=== PATIENT | male | born 1985 | race Caucasian/White ===

== ENCOUNTER 2017-05-22 05:18 | Day surgery (SDC) | payer BC ==
[~2017-05-22] VITALS: Ht 172.7 cm; Wt 75.3 kg
--- NOTE | ~2017-05-22 | O ---
[facility] [place] [address] OPERATIVE REPORT Name: TONI FOX Room #: 150-2 [facility]#: [id number] Admission: 05/22/17 Attend Phys: Omar Ceron MD, F Discharge: Date of : 81 Report #: [id number] THIS REPORT FOR: //name// CC: OZZY physician/PCP Omar Ceron DATE OF SERVICE: 05/22/2017 PREOPERATIVE DIAGNOSIS: Pilonidal cyst with continuous drainage and cellulitis. POSTOPERATIVE DIAGNOSIS: Pilonidal cyst with continuous drainage and cellulitis. OPERATIVE PROCEDURE: Excision of pilonidal cyst, 4 x 3.5 cm in width. SURGEON: Omar Ceron M.D. TECHNICAL PROJECT MANAGER: Karthikeyan Keith MS3. INDICATIONS: A 32-year-old male with 1-year history of punctum and drainage from a pilonidal cyst in the intergluteal space. OPERATIVE PROCEDURE: The patient had a thorough discussion of the procedure, benefits and risks. He gave informed consent to proceed. Discussion was held regarding leaving the wound open or doing a primary closure. A primary closure was selected. The patient was given preoperative IV antibiotics. He was brought to the operating room suite and had satisfactory induction of general endotracheal anesthesia. He was then turned into the prone position. After appropriate draping and positioning was performed, Betadine paint was utilized for the intergluteal region. Appropriate draping was completed. An appropriate timeout was then performed. 0.5% plain Naropin was injected superficially and circumferentially around the intergluteal cleft region, 20 mL was utilized superficially, 10 mL was used in the deep fascia. Elliptical excision of a 4 cm vertical length and 3.5 cm width of the ellipse of tissue, of skin and underlying subcutaneous tunnels, which had been delineated by utilization of methylene blue and hydrogen peroxide. A complete excision down to the presacral fascia was performed. All of the tissue was submitted for histologic evaluation. Hemostasis was complete. Deep wide sutures of looped #1 PDS were placed in the superior aspect of the incision. These were approximately 3 cm wide to the elliptical excision. This also included the presacral fascia. 0 PDS was also utilized for 2 sutures for the wide sutures. The deep subcutaneous tissue was then approximated with interrupted 2-0 Vicryl sutures, 3-0 Vicryl sutures were also utilized to further approximate the subcutaneous tissue. This was all approximated in complex complete layer closure of the pilonidal cystectomy. After the superficial fat tissue was approximated with interrupted 3-0 Vicryl, skin margins were then approximated with vertical mattress 4-[address] [address] OPERATIVE REPORT Name: TONI FOX [place] Room #: 150-2 [facility] M.R.#: [id number] Admission: 05/22/17 Attend Phys: Omar Ceron MD, F Discharge: Date of : 81 Report #: [id number] Monocryl sutures. After this was completed, the wide #1 and 0 PDS sutures were ligated in place, but not too tight. Estimated blood loss for the entire procedure was less than 5 mL. The patient tolerated the procedure well and he returned to recovery room in stable and satisfactory condition. He will be discharged home in the care of his . He has previous medication of Dent for pain control. He will return to the office in 1-2 weeks for followup care. By: [id number] Omar Ceron MD, FACS /nt
--- NOTE | ~2017-05-22 | S ---
[facility] [place] [address] SURGICAL PATH RPT PROCEDURE Name: OH FOX Room #: DEP [facility] [place] Xena.Mor.#: [id number] Admission: 05/22/17 Date of : 81 Discharge: 05/22/17 Report #: [id number] Path Case #: [id number] PATHOLOGY REPORT COLLECTION DATE: 05/22/2017 RECEIVED DATE: 05/23/2017 SUBMITTING PHYS: Dr. Omar Ceron OTHER PHYS: SPECIMEN(S) RECEIVED: A.Pilonidal cyst * * * * * * * * * * * * FINAL DIAGNOSIS: Pilonidal cyst, excision: - Marked acute and chronic inflammation along with giant cell reaction associated with vellus hair, consistent with pilonidal cyst. PATHOLOGIST: Karina Doyle M.D. REPORT ELECTRONICALLY SIGNED BY: Karina Doyle M.D. DATE/TIME: 05/27/2017 16:34 * * * * * * * * * * * * GROSS PATHOLOGY: The specimen is received in formalin, labeled "Oh Fox and pilonidal cyst", is an unoriented ellipse skin 4.0 x 1.2 excised to a depth of 2.0 cm. The lopez-white skin shows centrally located 0.3 cm defect. Inked blue, serially sectioned to show hemorrhagic soft tissue underlying the defect. The remaining parenchyma lopez-del toro, mechanical service representative section in A1. (SWS; 05/23/2017) CLINICAL HISTORY: Pilonidal cyst INITIAL CPT CODE(S): A; 37552 Professional services performed by [facility] at [facility] [address], [place] [address] Technical services performed by [facility] at [address] [place] [id number]. [facility] [address] [place] [address] SURGICAL PATH RPT PROCEDURE Name: OH FOX Room #: DEP [facility] [place] Jennifer#: [id number] Admission: 05/22/17 Date of : 81 Discharge: 05/22/17 Report #: [id number] Path Case #: [id number] [facility] [address] [address] PHONE: [phone] DIRECTOR: Gabriel Horton M.D. * * * END OF REPORT * * *
[~2017-05-22 05:18] MED LIST: BETAMETHASONE D15 GM TOP; KRILL OIL 1,001 EAC1 PO; PROBIOTIC1 EAC1 PO; SELENIMIN50 MCG PO; VITAMIN A10000 UNI3 PO; VITAMIN B COMP1 EACH PO; VITAMIN D1000 UNI1 PO
== END 2017-05-22 16:50 | disposition home or self-care (01) ==
LOC: TBA 05:18 → OR 05:18 → TBA 05:19 → OR 11:39 → EDSTATUS 12:48 → OR 12:56
DX: L05.91 Pilonidal cyst without abscess (principal); K65.0 Generalized (acute) peritonitis; Z79.899 Other long term (current) drug therapy; Z87.891 Personal history of nicotine dependence; Z98.890 Other specified postprocedural states
CPT/HCPCS: 50010; 50101; 50386; 50403; 56524; 56525; 56526; 56527; 62110; 62900; 70005